=== PATIENT | male | born 1975 | race African-American/Black ===

== ENCOUNTER 2017-01-15 22:16 | Emergency (ER) | payer OTHER ==
[~2017-01-15] VITALS: Ht 180.3 cm; Wt 68.2 kg
[2017-01-15] MEDS ORDERED: LIDOCAINE 1% MDV 20ML VIAL XX ONE (23:15)
[2017-01-15 23:27] LABS: BASO % 0.3 % (0.0-1.0); EOS # 0.2 K/mm3 (0.0-0.50); EOS % 4.1 % (0.0-3.0); LARGE UNSTAINED CELL # 0.1 K/mm3 (0.0-0.4); LARGE UNSTAINED CELL % 2.4 % (0.0-4.0); LYMPH % 32.5 % (24.0-44.0); MEAN CORPUSCULAR HEMOGLOBIN 28.8 pg (27.0-33.0); MEAN CORPUSCULAR HGB CONC 33.6 g/dl (32.0-36.5); MEAN CORPUSCULAR VOLUME 85.7 fl (80.0-96.0); MONO # 0.4 K/mm3 (0.0-0.8); MONO % 7.6 % (0.0-5.0); NEUTROPHILS % 53.1 % (36.0-66.0); PLATELET COUNT, AUTOMATED 241 k/mm3 (150-450); RED CELL DISTRIBUTION WIDTH 12.7 % (11.5-14.5); WHITE BLOOD COUNT 5.7 K/mm3 (4.0-10.0)
[2017-01-16 00:01] LABS: ERYTHROCYTE SEDIMENTATION RATE 35 mm/hr (0-15)
[2017-01-16] MEDS ORDERED: IBUP80TA PO (00:05)
[2017-01-16 00:08] VITALS: BP 174/79
[2017-01-16] MEDS ORDERED: IBUPROFEN 800 MG TAB PO ONE (00:15)
--- NOTE | 2017-01-16 07:47 | REP ---
Clinical: Trauma. Technique: AP, lateral, bilateral oblique and sunrise views right knee . Findings: The osseous structures and joint spaces are intact and normal. There is no evidence for acute fracture or dislocation. Surrounding soft tissues are unremarkable. No subcutaneous emphysema or radiodense foreign body. Impression: No acute fracture or dislocation. Signed by Joseph Alaniz MD 01/16/2017 07:38 A
== END 2017-01-16 00:33 | disposition home or self-care (01) ==
LOC: M ED 22:16
DX: M25.561 Pain in right knee (principal); M79.89 Other specified soft tissue disorders; F17.200 Nicotine dependence, unspecified, uncomplicated